=== PATIENT | female | born 1965 | race Caucasian/White ===

== ENCOUNTER 2018-11-04 21:08 | Emergency (ER) | payer MEDICAID ==
[~2018-11-04] VITALS: Ht 157.5 cm; Wt 84.7 kg
[2018-11-05] MEDS ORDERED: MAGNESIUM CITRATE 300ML SOLUTION PO ONE (07:00)
[2018-11-05] MEDS ORDERED: LACTULOSE 20G/30ML UDC PO ONE (07:00)
[2018-11-05 08:14] VITALS: BP 106/85
== END 2018-11-05 08:18 | disposition home or self-care (01) ==
LOC: ER 21:08
DX: K59.00 Constipation, unspecified (principal); I10 Essential (primary) hypertension
CPT/HCPCS: 99283